=== PATIENT | female | born 1970 | race Caucasian/White ===

== ENCOUNTER 2017-12-16 07:47 | Emergency (ER) | payer OTHER ==
[~2017-12-16] VITALS: Ht 154.9 cm; Wt 86.4 kg
[2017-12-16 07:51] VITALS: Ht 154.9 cm; Wt 86.4 kg
[2017-12-16] MEDS ORDERED: TENORMIN50 MG PO (07:53)
[2017-12-16] MEDS ORDERED: ATIVAN2 MG PO (07:53)
[2017-12-16] MEDS ORDERED: PROZAC10 MG PO (07:54)
[2017-12-16 08:39] VITALS: BP 152/63
== END 2017-12-16 08:41 | disposition home or self-care (01) ==
LOC: D.ER 07:47
DX: R00.2 Palpitations (principal); I10 Essential (primary) hypertension; F17.200 Nicotine dependence, unspecified, uncomplicated

== ENCOUNTER 2018-05-31 14:44 | Emergency (ER) | payer SELFPAY ==
[~2018-05-31] VITALS: Ht 154.9 cm; Wt 89.5 kg
[~2018-05-31 14:44] MED LIST: ATIVAN2 MG PO; PROZAC10 MG PO; TENORMIN50 MG PO
[2018-05-31 15:04] VITALS: BP 160/88; Ht 154.9 cm; Wt 89.5 kg
[2018-05-31] MEDS ORDERED: RYTHMOL 225 MG225 MG PO (15:06)
[2018-05-31] MEDS ORDERED: VOLTAREN75 MG PO (16:13)
== END 2018-05-31 16:23 | disposition home or self-care (01) ==
LOC: D.ER 14:44
DX: M25.512 Pain in left shoulder (principal)